=== PATIENT | female | born 1985 | race Caucasian/White ===

== ENCOUNTER 2018-02-09 08:41 | Outpatient (CLI) | payer OTHER ==
--- NOTE | 2018-02-09 13:48 | ULT ---
THYROID ULTRASOUND: Clinical history: Multinodular goiter. Comparison: None available. FINDINGS: There is generalized heterogeneity of the thyroid gland and there is thickening of the thyroid isthmu s measuring 4-5 mm in thickness. Numerous hypoechoic foci are interspersed throughout each thyroid lo be with a dominant mixed echogenicity solid appearing nodule seen within the mid region left thyroid lobe measuring up to approximately 1.5 cm, circumscribed in appearance. Left thyroid lobe length is d ocumented at 4.1 cm and right thyroid lobe length at 4.6 cm. IMPRESSION: Sonographic findings of multinodular goiter. Dominant nodule resides within the left thyroid lobe, mi d aspect, approximately 1.5 cm in diameter. Recommend follow up thyroid ultrasound in one year for do cumentation of stability. POS: SALMA
== END 2018-02-09 08:42 | disposition home or self-care (01) ==
LOC: ULT 08:41
PROVIDERS: ATTEND Family Medicine
DX: E04.2 Nontoxic multinodular goiter (principal); T78.1XXA Other adverse food reactions, not elsewhere classified, initial encounter
CPT/HCPCS: 36415; 76536

== ENCOUNTER 2018-10-25 05:28 | Emergency (ER) | payer OTHER ==
[2018-10-25] MEDS ORDERED: Ketorolac Tromethamine 60 MG/2 ML VIAL ONE (06:11)
--- NOTE | 2018-10-25 07:40 | RAD ---
CHEST 2 VIEWS: Date: 10/25/18 INDICATION: History of left-sided arm pain. COMPARISON: None. FINDINGS: Lungs are clear. Heart size normal. No acute osseous abnormality is evident. IMPRESSION: No acute cardiopulmonary abnormality. POS: BH
--- NOTE | 2018-10-25 07:44 | RAD ---
LEFT SHOULDER 3 VIEWS: Date: 10/25/18 INDICATION: Left shoulder pain. COMPARISON: None. FINDINGS: There are calcifications within the soft tissues adjacent to the posterior aspect of the left greater tuberosity suspicious for calcific tendinosis. There is a well circumscribed peripherally sclerotic lesion seen eccentrically within the proximal metadiaphyseal region of the left proximal humerus. Thi s lesion abuts the lateral cortex of the proximal left humerus without evidence of endosteal or perio steal reaction. Lesion contains some areas of lace-like and linear radiodensity. Visualized left lung is clear. AC joint is normal appearing. IMPRESSION: 1. Calcific densities overlying the soft tissues near the posterior aspect of the greater tuberosity suspicious for calcific tendinosis. 2. 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 This is a benign entity. There are no aggressive feat ures involving this lesion. This is a lesion of low biologic activity. 3. Glenohumeral and AC joint alignment is within normal limits. No acute fracture is demonstrated. POS:
== END 2018-10-25 06:51 | disposition home or self-care (01) ==
LOC: ERS 05:28
DX: M75.32 Calcific tendinitis of left shoulder (principal); F41.9 Anxiety disorder, unspecified; Z79.899 Other long term (current) drug therapy
CPT/HCPCS: 71046; 93005; 96372; J1885

== ENCOUNTER 2019-02-16 08:48 | Outpatient (CLI) | payer OTHER ==
--- NOTE | 2019-02-16 09:54 | ULT ---
THYROID ULTRASOUND: HISTORY: Multinodular goiter. COMPARISON: 02/09/2018 TECHNIQUE: Sagittal and transverse imaging of the thyroid gland is performed. FINDINGS: Diffuse heterogeneity throughout the thyroid gland. Thyroid isthmus is 0.8 cm. Right thyroid lobe m easures 2.5 x 5.5 x 2.2 cm. Left thyroid lobe measures 4.9 x 1.9 x 2.2 cm. There is a nodule in the lower pole of the left thyroid lobe, measuring 1.4 x 0.9 x 0.9 cm. This nodule has a TI-RADS lyubov culator score of TR4, moderately suspicious. Based on the size of the lesion, follow-up imaging in one year is recommended. IMPRESSION: 1. Solid nodule in the left thyroid lobe, lower pole, as described above. No appreciable change in size. 2. Diffuse heterogeneity throughout the thyroid gland, similar to the previous exam. Transcribed Date/Time: 02/16/2019 10:10 AM
== END 2019-02-16 08:49 | disposition home or self-care (01) ==
LOC: RAD 08:48
PROVIDERS: ATTEND Physician Assistant
DX: E04.2 Nontoxic multinodular goiter (principal)
CPT/HCPCS: 76536

== ENCOUNTER 2020-10-17 07:57 | Outpatient (CLI) | payer OTHER | END 2020-10-17 07:58 | disposition home or self-care (01) | LOC: BICMAMMO 07:57 | PROVIDERS: ATTEND Physician Assistant | DX: Z00.00 Encounter for general adult medical examination without abnormal findings (principal); Z80.3 Family history of malignant neoplasm of breast | CPT/HCPCS: 77063; 77067 ==

== ENCOUNTER 2020-12-26 10:10 | Outpatient (CLI) | payer OTHER | END 2020-12-26 10:11 | disposition home or self-care (01) | LOC: ULT 10:10 | PROVIDERS: ATTEND Internal Medicine Endocrinology, Diabetes & Metabolism | DX: E04.2 Nontoxic multinodular goiter (principal) | CPT/HCPCS: 76536 ==

== ENCOUNTER 2021-03-13 20:30 | Inpatient (IN) | payer OTHER ==
[2021-03-13] MEDS ORDERED: Propofol 1,000 MG/100 ML VIAL IV ONE (23:25)
[2021-03-13] MEDS ORDERED: Fentanyl CADD 100 ML ONE (23:58)
[2021-03-14] MEDS ORDERED: Ventilator Sedation Protocol 1 EACH FS ONE (00:26)
[2021-03-14] MEDS ORDERED: hydrALAZINE 20 MG/ML VIAL SLOW IVP PRN (00:27)
[2021-03-14] MEDS ORDERED: HumaLOG 300 UNITS/3 ML VIAL SC PRN (00:27)
[2021-03-14] MEDS ORDERED: VANCOMYCIN IVPB PRN (00:27)
[2021-03-14] MEDS ORDERED: Acetaminophen 325 MG TAB PO PRN (00:29)
[2021-03-14] MEDS ORDERED: Ondansetron PF 4 MG/2 ML Vial IVP PRN (00:29)
[2021-03-14] MEDS ORDERED: DISCONTINUE PREVIOUS NARCOTIC PAIN MEDICATIONS AND BENZODIAZEPINES FS SCH (01:00)
[2021-03-14] MEDS ORDERED: Propofol 1,000 MG/100 ML VIAL IV PRN (01:00)
[2021-03-14] MEDS ORDERED: Propofol BOLUS 1,000 MG/100 ML VIAL IV PRN (01:00)
[2021-03-14] MEDS ORDERED: Furosemide 100 MG/10 ML VIAL SLOW IVP SCH (01:00)
[2021-03-14] MEDS ORDERED: Fentanyl BOLUS 250 ML IVPB PRN (01:00)
[2021-03-14] MEDS: Cefepime 1 GM in Sodium Chloride 0.9% 100 ML IVPB SCH ×2 (01:09→13:50)
[2021-03-14] MEDS: Propofol 1,000 MG/100 ML VIAL IV PRN ×6 (02:25→22:46)
[2021-03-14 04:50] LABS: Band 18 % (5-11); Hemoglobin 9.7 g/dL (12.0-16.0); Hypochromia SLIGHT = 6-15 cells (100X) (0-5/hpf); MDiff Complete? YES; Mean Corpuscular Hemoglobin 30.3 pg (27.0-31.0); Mean Corpuscular Volume 94.7 fL (78.0-98.0); Mean Platelet Volume 9.8 fL (7.4-10.4); Monocytes 10 % (0-10); Neutrophil 72 % (42-75); Platelet Count 133 thou/uL (130-400); Platelet Morphology Comment Appears Adequate; RBC Distribution Width 11.5 % (11.5-14.5); White Blood Cell (WBC) Count 39.8 thou/uL (4.8-10.8)
[2021-03-14 05:07] LABS: ALT (SGPT) 37 U/L (8-55); AST (SGOT) 72 U/L (5-34); Albumin 2.5 g/dL (3.5-5.0); Alkaline Phosphatase 143 U/L (40-110); Anion Gap 18 mmol/L (10-20); BUN (Urea Nitrogen) 67 mg/dL (7.0-18.7); Calc. Creatinine Clearance 21 mL/min (70-130); Calcium 7.6 mg/dL (7.8-10.44); Carbon Dioxide 21 mmol/L (22-29); Chloride 105 mmol/L (98-107); Globulin 3.1 g/dL (2.4-3.5); Glucose 133 mg/dL (70-105); Potassium 4.9 mmol/L (3.5-5.1); Protein, Total 5.6 g/dL (6.0-8.3); Sodium 139 mmol/L (136-145)
[2021-03-14 05:10] LABS: Troponin I 0.167 ng/mL (< 0.028)
[2021-03-14] MEDS: Furosemide 100 MG/10 ML VIAL SLOW IVP SCH ×2 (06:42→15:12)
[2021-03-14] MEDS ORDERED: Heparin 10,000 UNITS/ 10 ML VIAL ONE (08:45)
[2021-03-14] MEDS ORDERED: Dexamethasone 10 MG in Sodium Chloride 0.9% 50 ML IVPB SCH (09:00)
[2021-03-14] MEDS ORDERED: Enoxaparin Sodium 40 MG/0.4 ML SYRINGE SC SCH (09:00)
[2021-03-14] MEDS: Famotidine/PF 20 mg/2ml Vial SLOW IVP SCH ×2 (09:07→19:41)
[2021-03-14 09:09] LABS: Base Excess (BEa) -7.7 mEq/L (-2.0 to +3.0); CO2 Tension 50.1 mmHg (35.0-45.0); Calcium, Ionized (arterial) 0.96 mmol/L (1.12-1.30); Carboxyhemoglobin (COHb) 0.3 gm% (0.0-3.0); Hemoglobin (Hb) 10.7 g/dL (12.0-16.0); O2 Tension (PaO2), arterial 88.1 mmHg (80.0-100.0); Potassium - ABG Lab 4.86 mmol/L (3.70-5.30)
[2021-03-14 09:11] LABS: pH, Arterial 7.22 (7.35-7.45)
[2021-03-14 09:12] LABS: ALV-art Gradient 490.975 mmHg (0-20); Puncture Site RRA
[2021-03-14] MEDS: Lorazepam 2 MG/ML VIAL SLOW IVP PRN ×2 (09:23→21:52)
[2021-03-14] MEDS ORDERED: Vecuronium 10 MG VIAL ONE ×2 (09:41→14:19)
[2021-03-14 11:17] LABS: HBSAg Index 0.24 S/CO (0-0.99); Hep B Surf Ag Non-Reactive S/CO (NonReactive)
[2021-03-14] MEDS ORDERED: Fentanyl CADD 100 ML ONE (12:02)
[2021-03-14] MEDS: Fentanyl CADD 100 ML IV SCH ×2 (12:05→13:00)
[2021-03-14 19:03] LABS: Creatinine, Urine 42.84 mg/dL (47-110)
[2021-03-14] MEDS: Morphine 2 MG/ML VIAL SLOW IVP PRN (21:28)
[2021-03-15] MEDS: Cefepime 1 GM in Sodium Chloride 0.9% 100 ML IVPB SCH ×2 (00:10→13:48)
[2021-03-15] MEDS ORDERED: Fentanyl CADD 100 ML ONE ×2 (00:28→14:30)
[2021-03-15] MEDS: Fentanyl CADD 100 ML IV SCH ×2 (00:47→14:35)
[2021-03-15 01:29] LABS: Vancomycin, Random 23.5 ug/mL (See Comment)
[2021-03-15] MEDS ORDERED: Vancomycin 1 GM in Premix Bag 1 BAG IVPB SCH (02:00)
[2021-03-15] MEDS: Propofol 1,000 MG/100 ML VIAL IV PRN ×4 (03:12→18:06)
[2021-03-15 07:14] LABS: Hemoglobin 10.6 g/dL (12.0-16.0); Mean Corpuscular HGB CONC 31.8 g/dL (32.0-36.0); Mean Corpuscular Hemoglobin 29.7 pg (27.0-31.0); Mean Corpuscular Volume 93.1 fL (78.0-98.0); Mean Platelet Volume 9.7 fL (7.4-10.4); Platelet Count 150 thou/uL (130-400); RBC Distribution Width 11.7 % (11.5-14.5); Red Blood Cell (RBC) Count 3.56 mill/uL (4.20-5.40); White Blood Cell (WBC) Count 40.9 thou/uL (4.8-10.8)
[2021-03-15] MEDS: Enoxaparin Sodium 30 MG/0.3 ML SYRINGE SC SCH (07:45)
[2021-03-15] MEDS: Dexamethasone 4 mg/ml Vial SLOW IVP SCH (07:45)
[2021-03-15] MEDS: Famotidine/PF 20 mg/2ml Vial SLOW IVP SCH (07:53)
[2021-03-15 08:06] LABS: Band 24 % (5-11); Lymphocytes 2 % (21-51); MDiff Complete? YES; Monocytes 3 % (0-10); Neutrophil 71 % (42-75); Platelet Morphology Comment Appears Adequate; Polychromasia SLIGHT = 2-3 cells (100X) (0-2/hpf)
[2021-03-15] MEDS ORDERED: Heparin 10,000 UNITS/ 10 ML VIAL ONE (09:54)
[2021-03-15] MEDS: Vecuronium 10 MG VIAL IV PRN ×2 (10:07→18:07)
[2021-03-15] MEDS: Propofol 500 MG/50 ML VIAL IV PRN (22:17)
[2021-03-16] MEDS: Propofol 500 MG/50 ML VIAL IV PRN ×5 (00:26→10:05)
[2021-03-16] MEDS: Cefepime 1 GM in Sodium Chloride 0.9% 100 ML IVPB SCH ×2 (00:26→12:34)
[2021-03-16 01:31] LABS: Vancomycin, Random 15.7 ug/mL (See Comment)
[2021-03-16] MEDS ORDERED: Vancomycin HCl 750 MG in Sodium Chloride 0.9% 250 ML 250 ML IVPB SCH (01:45)
[2021-03-16] MEDS ORDERED: Fentanyl CADD 100 ML ONE ×2 (02:56→16:14)
[2021-03-16] MEDS: Fentanyl CADD 100 ML IV SCH ×2 (03:02→16:21)
[2021-03-16 04:45] LABS: Anion Gap 21 mmol/L (10-20); BUN (Urea Nitrogen) 76 mg/dL (7.0-18.7); Calc. Creatinine Clearance 23 mL/min (70-130); Calcium 7.4 mg/dL (7.8-10.44); Carbon Dioxide 22 mmol/L (22-29); Chloride 100 mmol/L (98-107); Glucose 97 mg/dL (70-105); Sodium 138 mmol/L (136-145)
[2021-03-16 05:03] LABS: Hemoglobin 9.6 g/dL (12.0-16.0); Mean Corpuscular Hemoglobin 31.3 pg (27.0-31.0); Mean Corpuscular Volume 92.1 fL (78.0-98.0); Mean Platelet Volume 9.9 fL (7.4-10.4); Platelet Count 141 thou/uL (130-400); RBC Distribution Width 11.7 % (11.5-14.5); Red Blood Cell (RBC) Count 3.05 mill/uL (4.20-5.40); White Blood Cell (WBC) Count 38.3 thou/uL (4.8-10.8)
[2021-03-16 06:20] LABS: Band 4 % (5-11); Lymphocytes 8 % (21-51); MDiff Complete? YES; Metamyelocyte 2 % (0-0); Monocytes 11 % (0-10); Myelocyte 1 % (0-0); Neutrophil 74 % (42-75); Platelet Morphology Comment Appears Adequate; RBC Morphology Normal
[2021-03-16] MEDS: Famotidine/PF 20 mg/2ml Vial SLOW IVP SCH (08:58)
[2021-03-16] MEDS: Dexamethasone 4 mg/ml Vial SLOW IVP SCH ×2 (08:58→19:19)
[2021-03-16] MEDS: Enoxaparin Sodium 30 MG/0.3 ML SYRINGE SC SCH (08:58)
[2021-03-16] MEDS ORDERED: Vecuronium 10 MG VIAL ONE (09:29)
[2021-03-16] MEDS: Vecuronium 10 MG VIAL IV PRN ×3 (09:30→21:05)
[2021-03-16] MEDS ORDERED: Heparin 10,000 UNITS/ 10 ML VIAL ONE (09:56)
[2021-03-16] MEDS ORDERED: Propofol 1,000 MG/100 ML VIAL IV ONE ×2 (12:31→17:18)
[2021-03-16 13:23] LABS: Actual Bicarbonate (HCO3a) 25.8 mEq/L (22-28); Base Excess (BEa) 0.9 mEq/L (-2.0 to +3.0); CO2 Tension 42.2 mmHg (35.0-45.0); Calcium, Ionized (arterial) 1.06 mmol/L (1.12-1.30); Hemoglobin (Hb) 11.1 g/dL (12.0-16.0); O2 Tension (PaO2), arterial 82.5 mmHg (80.0-100.0); Potassium - ABG Lab 3.54 mmol/L (3.70-5.30)
[2021-03-16 13:33] LABS: Puncture Site LRA
[2021-03-16] MEDS ORDERED: Sterile Water 10 ML ONE (20:59)
[2021-03-16] MEDS: Morphine 2 MG/ML VIAL SLOW IVP PRN (21:00)
[2021-03-16] MEDS: Lorazepam 2 MG/ML VIAL SLOW IVP PRN (21:02)
[2021-03-16 21:34] LABS: Bilirubin Negative (Negative); Blood, Urine 3+ (Negative); Glucose, Urine (Dipstick) Normal (Negative); Ketone, Urine Negative (Negative); Leukocyte 500 Leu/uL (Negative); Nitrite Negative (Negative); Protein, Urine (Dipstick) 200 mg/dL (Neg-Trace); RBC/HPF Greater than 50 HPF (0-3); Urobilinogen Normal mg/dL (Less than 2); WBC/HPF Greater than 50 HPF (0-3); Yeast-Hyphae 2+ HPF (None Seen)
[2021-03-16 21:43] LABS: Clarity Turbid (Clear); Squamous Epithelial 0-3 HPF (0-3)
[2021-03-16 21:44] LABS: Bacteria/HPF 2+ HPF (None Seen); Yeast-Budding 2+ HPF (None Seen)
[2021-03-16] MEDS: Propofol 1,000 MG/100 ML VIAL IV PRN (22:30)
[2021-03-17] MEDS: Cefepime 1 GM in Sodium Chloride 0.9% 100 ML IVPB SCH ×2 (01:17→13:37)
[2021-03-17] MEDS ORDERED: Fentanyl CADD 0 ML ONE (01:31)
[2021-03-17 02:02] LABS: Vancomycin, Random 16.8 ug/mL (See Comment)
[2021-03-17] MEDS: Propofol 1,000 MG/100 ML VIAL IV PRN ×6 (02:46→20:36)
[2021-03-17] MEDS ORDERED: Fentanyl CADD 100 ML ONE ×2 (03:56→17:08)
[2021-03-17] MEDS: Fentanyl CADD 100 ML IV SCH ×2 (03:58→17:13)
[2021-03-17] MEDS ORDERED: Sterile Water 10 ML ONE ×2 (04:25→20:14)
[2021-03-17] MEDS: Vecuronium 10 MG VIAL IV PRN ×4 (04:26→20:16)
[2021-03-17] MEDS: Lorazepam 2 MG/ML VIAL SLOW IVP PRN ×3 (04:26→23:32)
[2021-03-17 04:32] LABS: Phosphorus 8.8 mg/dL (2.3-4.7)
[2021-03-17 04:43] LABS: AST (SGOT) 129 U/L (5-34); Calcium 7.2 mg/dL (7.8-10.44); Chloride 97 mmol/L (98-107); Potassium 4.9 mmol/L (3.5-5.1); Sodium 135 mmol/L (136-145)
[2021-03-17 04:47] LABS: Albumin 2.5 g/dL (3.5-5.0)
[2021-03-17 04:50] LABS: Globulin 3.1 g/dL (2.4-3.5); Glucose 99 mg/dL (70-105); Protein, Total 5.6 g/dL (6.0-8.3)
[2021-03-17 04:51] LABS: Carbon Dioxide 22 mmol/L (22-29)
[2021-03-17 04:53] LABS: Alkaline Phosphatase 198 U/L (40-110); Calc. Creatinine Clearance 30 mL/min (70-130)
[2021-03-17 04:54] LABS: BUN (Urea Nitrogen) 67 mg/dL (7.0-18.7)
[2021-03-17 04:55] LABS: Magnesium 2.5 mg/dL (1.6-2.6)
[2021-03-17 04:56] LABS: ALT (SGPT) 46 U/L (8-55)
[2021-03-17 05:14] LABS: Hemoglobin 10.1 g/dL (12.0-16.0); Mean Corpuscular HGB CONC 34.3 g/dL (32.0-36.0); Mean Corpuscular Hemoglobin 31.5 pg (27.0-31.0); Mean Corpuscular Volume 91.9 fL (78.0-98.0); Mean Platelet Volume 10.2 fL (7.4-10.4); Platelet Count 139 thou/uL (130-400)
[2021-03-17 05:35] LABS: Anion Gap 22 mmol/L (10-20)
[2021-03-17 05:59] LABS: Band 27 % (5-11); Lymphocytes 4 % (21-51); MDiff Complete? YES; Metamyelocyte 1 % (0-0); Monocytes 1 % (0-10); Neutrophil 67 % (42-75)
[2021-03-17] MEDS: Enoxaparin Sodium 30 MG/0.3 ML SYRINGE SC SCH (08:18)
[2021-03-17] MEDS: Dexamethasone 4 mg/ml Vial SLOW IVP SCH ×2 (08:18→20:16)
[2021-03-17] MEDS: Famotidine/PF 20 mg/2ml Vial SLOW IVP SCH (08:19)
[2021-03-17] MEDS ORDERED: Vancomycin HCl 750 MG in Sodium Chloride 0.9% 250 ML 250 ML IVPB SCH (09:00)
[2021-03-17 09:15] LABS: Actual Bicarbonate (HCO3a) 21.7 mEq/L (22-28); Base Excess (BEa) -3.6 mEq/L (-2.0 to +3.0); CO2 Tension 40.2 mmHg (35.0-45.0); Calcium, Ionized (arterial) 0.94 mmol/L (1.12-1.30); Carboxyhemoglobin (COHb) 0.2 gm% (0.0-3.0); Hemoglobin (Hb) 10.5 g/dL (12.0-16.0); O2 Tension (PaO2), arterial 71.5 mmHg (80.0-100.0); Potassium - ABG Lab 4.72 mmol/L (3.70-5.30); pH, Arterial 7.35 (7.35-7.45)
[2021-03-17 09:34] LABS: Puncture Site LRA
[2021-03-17] MEDS ORDERED: Heparin 10,000 UNITS/ 10 ML VIAL ONE (11:53)
[2021-03-18] MEDS: Cefepime 1 GM in Sodium Chloride 0.9% 100 ML IVPB SCH ×2 (00:19→12:33)
[2021-03-18] MEDS: Propofol 1,000 MG/100 ML VIAL IV PRN ×7 (00:19→22:03)
[2021-03-18] MEDS: Lorazepam 2 MG/ML VIAL SLOW IVP PRN (02:07)
[2021-03-18] MEDS: Vecuronium 10 MG VIAL IV PRN ×3 (02:07→16:00)
[2021-03-18] MEDS ORDERED: Fentanyl CADD 100 ML ONE ×2 (04:28→17:26)
[2021-03-18] MEDS: Fentanyl CADD 100 ML IV SCH ×2 (04:32→17:47)
[2021-03-18 04:34] LABS: Hemoglobin 10.2 g/dL (12.0-16.0); Mean Corpuscular HGB CONC 34.3 g/dL (32.0-36.0); Mean Corpuscular Hemoglobin 31.3 pg (27.0-31.0); Mean Corpuscular Volume 91.1 fL (78.0-98.0); Mean Platelet Volume 10.6 fL (7.4-10.4); Platelet Count 134 thou/uL (130-400); Red Blood Cell (RBC) Count 3.26 mill/uL (4.20-5.40); White Blood Cell (WBC) Count 48.8 thou/uL (4.8-10.8)
[2021-03-18 04:43] LABS: Phosphorus 7.3 mg/dL (2.3-4.7)
[2021-03-18 04:45] LABS: ALT (SGPT) 41 U/L (8-55); AST (SGOT) 118 U/L (5-34); Albumin 2.4 g/dL (3.5-5.0); Alkaline Phosphatase 183 U/L (40-110); Anion Gap 21 mmol/L (10-20); BUN (Urea Nitrogen) 59 mg/dL (7.0-18.7); Bilirubin, Total 0.9 mg/dL (0.2-1.2); Calc. Creatinine Clearance 35 mL/min (70-130); Calcium 7.4 mg/dL (7.8-10.44); Carbon Dioxide 24 mmol/L (22-29); Chloride 95 mmol/L (98-107); Globulin 3.4 g/dL (2.4-3.5); Glucose 99 mg/dL (70-105); Magnesium 2.3 mg/dL (1.6-2.6); Potassium 4.6 mmol/L (3.5-5.1); Protein, Total 5.8 g/dL (6.0-8.3); Sodium 135 mmol/L (136-145)
[2021-03-18 05:26] LABS: Band 19 % (5-11); Lymphocytes 3 % (21-51); MDiff Complete? YES; Monocytes 1 % (0-10); Myelocyte 2 % (0-0); Neutrophil 75 % (42-75); Nucleated RBC 1 % (0)
[2021-03-18 08:35] LABS: Actual Bicarbonate (HCO3a) 25.6 mEq/L (22-28); Base Excess (BEa) -0.3 mEq/L (-2.0 to +3.0); CO2 Tension 47.2 mmHg (35.0-45.0); Calcium, Ionized (arterial) 0.98 mmol/L (1.12-1.30); Carboxyhemoglobin (COHb) 0.3 gm% (0.0-3.0); Hemoglobin (Hb) 10.9 g/dL (12.0-16.0); O2 Tension (PaO2), arterial 77.6 mmHg (80.0-100.0); Potassium - ABG Lab 4.51 mmol/L (3.70-5.30); pH, Arterial 7.35 (7.35-7.45)
[2021-03-18 08:38] LABS: Puncture Site LRA
[2021-03-18] MEDS: Enoxaparin Sodium 30 MG/0.3 ML SYRINGE SC SCH (09:17)
[2021-03-18] MEDS: Dexamethasone 4 mg/ml Vial SLOW IVP SCH ×2 (09:17→21:26)
[2021-03-18] MEDS: Famotidine/PF 20 mg/2ml Vial SLOW IVP SCH (09:23)
[2021-03-18 09:38] LABS: Vancomycin, Random 22.8 ug/mL (See Comment)
[2021-03-18 16:13] LABS: Hemoglobin 10.3 g/dL (12.0-16.0); Mean Corpuscular HGB CONC 34.5 g/dL (32.0-36.0); Mean Corpuscular Hemoglobin 31.1 pg (27.0-31.0); Mean Corpuscular Volume 90.3 fL (78.0-98.0); Mean Platelet Volume 11.2 fL (7.4-10.4); Platelet Count 125 thou/uL (130-400); RBC Distribution Width 11.9 % (11.5-14.5); Red Blood Cell (RBC) Count 3.32 mill/uL (4.20-5.40); White Blood Cell (WBC) Count 51.5 thou/uL (4.8-10.8)
[2021-03-18 16:36] LABS: Band 23 % (5-11); Large Platelets SLIGHT; Lymphocytes 2 % (21-51); MDiff Complete? YES; Monocytes 3 % (0-10); Neutrophil 71 % (42-75); Platelet Morphology Comment Appears Decreased; Polychromasia MODERATE = 3-4 cells (100X) (0-2/hpf); Reactive Lymphocytes 1 % (0-10)
[2021-03-19] MEDS: Propofol 1,000 MG/100 ML VIAL IV PRN ×6 (00:58→21:54)
[2021-03-19] MEDS: Cefepime 1 GM in Sodium Chloride 0.9% 100 ML IVPB SCH (00:58)
[2021-03-19 04:25] LABS: Hemoglobin 9.9 g/dL (12.0-16.0); Mean Corpuscular HGB CONC 35.6 g/dL (32.0-36.0); Mean Corpuscular Volume 89.8 fL (78.0-98.0); Red Blood Cell (RBC) Count 3.11 mill/uL (4.20-5.40)
[2021-03-19 04:39] LABS: Anion Gap 26 mmol/L (10-20); BUN (Urea Nitrogen) 99 mg/dL (7.0-18.7); Calc. Creatinine Clearance 25 mL/min (70-130); Calcium 7.2 mg/dL (7.8-10.44); Carbon Dioxide 20 mmol/L (22-29); Chloride 92 mmol/L (98-107); Glucose 107 mg/dL (70-105); Potassium 5.5 mmol/L (3.5-5.1); Sodium 132 mmol/L (136-145)
[2021-03-19 05:02] LABS: Band 20 % (5-11); Lymphocytes 4 % (21-51); MDiff Complete? YES; Mean Platelet Volume 11.1 fL (7.4-10.4); Monocytes 3 % (0-10); Neutrophil 73 % (42-75); Platelet Count 111 thou/uL (130-400); Platelet Morphology Comment Appears Decreased; RBC Morphology Normal
[2021-03-19] MEDS: Lorazepam 2 MG/ML VIAL SLOW IVP PRN ×2 (05:47→21:54)
[2021-03-19] MEDS ORDERED: Fentanyl CADD 100 ML ONE ×2 (07:08→20:44)
[2021-03-19] MEDS: Fentanyl CADD 100 ML IV SCH ×2 (07:10→20:48)
[2021-03-19] MEDS: Vecuronium 10 MG VIAL IV PRN (07:18)
[2021-03-19] MEDS: Enoxaparin Sodium 30 MG/0.3 ML SYRINGE SC SCH (09:09)
[2021-03-19] MEDS: Dexamethasone 4 mg/ml Vial SLOW IVP SCH ×2 (09:10→20:50)
[2021-03-19 10:25] LABS: Vancomycin, Random 18.5 ug/mL (See Comment)
[2021-03-19] MEDS: Famotidine/PF 20 mg/2ml Vial SLOW IVP SCH (11:22)
[2021-03-19] MEDS ORDERED: Heparin 10,000 UNITS/ 10 ML VIAL ONE (11:51)
[2021-03-19] MEDS ORDERED: Vancomycin HCl 1.5 GM in Sodium Chloride 0.9% 250 ML 300 ML IVPB SCH (12:30)
[2021-03-19] MEDS ORDERED: HOLD VANCOMYCIN FOR LEVEL >20 FS SCH (12:30)
[2021-03-19] MEDS ORDERED: Vancomycin HCl 1.25 GM in Sodium Chloride 0.9% 250 ML 250 ML IVPB SCH (12:30)
[2021-03-19] MEDS ORDERED: Vancomycin 1 GM in Premix Bag 1 BAG IVPB SCH (12:30)
[2021-03-19] MEDS ORDERED: Vancomycin HCl 750 MG in Sodium Chloride 0.9% 250 ML 250 ML IVPB SCH (12:30)
[2021-03-19] MEDS ORDERED: Sodium Chloride 0.9% (PF) 10 ML VIAL FS PRN (14:00)
[2021-03-19] MEDS: Pantoprazole 40 MG VIAL IVP SCH (15:40)
[2021-03-19] MEDS: Micafungin 100 MG in Sodium Chloride 0.9% 100 ML IVPB SCH (20:47)
[2021-03-19] MEDS: Morphine 2 MG/ML VIAL SLOW IVP PRN (23:39)
[2021-03-20] MEDS: Propofol 1,000 MG/100 ML VIAL IV PRN ×9 (00:55→23:46)
[2021-03-20] MEDS ORDERED: Cefepime 0.5 GM, Admixture Fee 1 EACH in Sodium Chloride 0.9% 100 ML IVPB SCH (01:00)
[2021-03-20] MEDS: Morphine 2 MG/ML VIAL SLOW IVP PRN (02:06)
[2021-03-20] MEDS: Pantoprazole 40 MG VIAL IVP SCH ×2 (02:06→14:58)
[2021-03-20 04:29] LABS: Hemoglobin 9.1 g/dL (12.0-16.0); Mean Corpuscular HGB CONC 34.8 g/dL (32.0-36.0); Mean Corpuscular Hemoglobin 31.1 pg (27.0-31.0); Mean Corpuscular Volume 89.3 fL (78.0-98.0); Mean Platelet Volume 11.2 fL (7.4-10.4); Platelet Count 108 thou/uL (130-400); RBC Distribution Width 12.2 % (11.5-14.5); Red Blood Cell (RBC) Count 2.94 mill/uL (4.20-5.40); White Blood Cell (WBC) Count 61.5 thou/uL (4.8-10.8)
[2021-03-20 04:40] LABS: Anion Gap 20 mmol/L (10-20); BUN (Urea Nitrogen) 63 mg/dL (7.0-18.7); Calc. Creatinine Clearance 36 mL/min (70-130); Calcium 7.3 mg/dL (7.8-10.44); Carbon Dioxide 23 mmol/L (22-29); Chloride 95 mmol/L (98-107); Glucose 106 mg/dL (70-105); Potassium 4.6 mmol/L (3.5-5.1); Sodium 133 mmol/L (136-145)
[2021-03-20 05:51] LABS: Band 15 % (5-11); Lymphocytes 4 % (21-51); MDiff Complete? YES; Monocytes 2 % (0-10); Myelocyte 1 % (0-0); Neutrophil 78 % (42-75); Platelet Morphology Comment Appears Decreased; Polychromasia SLIGHT = 2-3 cells (100X) (0-2/hpf)
[2021-03-20] MEDS ORDERED: Fentanyl CADD 100 ML ONE ×2 (09:17→19:44)
[2021-03-20] MEDS: Enoxaparin Sodium 30 MG/0.3 ML SYRINGE SC SCH (09:33)
[2021-03-20] MEDS: Dexamethasone 4 mg/ml Vial SLOW IVP SCH ×2 (09:34→19:50)
[2021-03-20] MEDS: Lorazepam 2 MG/ML VIAL SLOW IVP PRN ×3 (09:35→14:59)
[2021-03-20] MEDS ORDERED: Heparin 10,000 UNITS/ 10 ML VIAL ONE (10:34)
[2021-03-20 11:05] LABS: Vancomycin, Random 13.6 ug/mL (See Comment)
[2021-03-20 11:27] LABS: Troponin I 0.104 ng/mL (< 0.028)
[2021-03-20] MEDS: Micafungin 100 MG in Sodium Chloride 0.9% 100 ML IVPB SCH (14:59)
[2021-03-20] MEDS: Meropenem 500 MG in Sodium Chloride 0.9% 100 ML IVPB SCH (16:53)
[2021-03-20 17:25] VITALS: BMI 36.5
[2021-03-20] MEDS: Fentanyl CADD 100 ML IV SCH (19:54)
[2021-03-21] MEDS: Pantoprazole 40 MG VIAL IVP SCH ×2 (02:55→15:00)
[2021-03-21] MEDS: Propofol 1,000 MG/100 ML VIAL IV PRN ×7 (02:57→22:20)
[2021-03-21 03:55] LABS: Band 29 % (5-11); Hemoglobin 8.8 g/dL (12.0-16.0); Lymphocytes 3 % (21-51); MDiff Complete? YES; Mean Corpuscular HGB CONC 33.9 g/dL (32.0-36.0); Mean Corpuscular Hemoglobin 30.9 pg (27.0-31.0); Mean Corpuscular Volume 91.1 fL (78.0-98.0); Mean Platelet Volume 11.2 fL (7.4-10.4); Monocytes 8 % (0-10); Neutrophil 60 % (42-75); Platelet Count 97 thou/uL (130-400); Platelet Morphology Comment Appears Decreased; RBC Distribution Width 12.9 % (11.5-14.5); RBC Morphology Normal; Red Blood Cell (RBC) Count 2.85 mill/uL (4.20-5.40); White Blood Cell (WBC) Count 61.6 thou/uL (4.8-10.8)
[2021-03-21 04:01] LABS: Anion Gap 27 mmol/L (10-20); BUN (Urea Nitrogen) 95 mg/dL (7.0-18.7); Calc. Creatinine Clearance 26 mL/min (70-130); Calcium 7.1 mg/dL (7.8-10.44); Carbon Dioxide 18 mmol/L (22-29); Chloride 92 mmol/L (98-107); Glucose 110 mg/dL (70-105); Sodium 131 mmol/L (136-145)
[2021-03-21] MEDS ORDERED: Fentanyl CADD 100 ML ONE (05:59)
[2021-03-21] MEDS: Fentanyl CADD 100 ML IV SCH ×2 (06:02→16:11)
[2021-03-21] MEDS ORDERED: Dextrose 50% Abboject 50 ML SYRINGE SLOW IVP SCH (07:00)
[2021-03-21] MEDS ORDERED: Insulin Regular 300 UNITS/3 ML VIAL IVP SCH (07:00)
[2021-03-21] MEDS: Enoxaparin Sodium 30 MG/0.3 ML SYRINGE SC SCH (08:35)
[2021-03-21] MEDS: Dexamethasone 4 mg/ml Vial SLOW IVP SCH ×2 (08:36→21:15)
[2021-03-21] MEDS ORDERED: Heparin 10,000 UNITS/ 10 ML VIAL ONE (10:31)
[2021-03-21] MEDS: Micafungin 100 MG in Sodium Chloride 0.9% 100 ML IVPB SCH (16:00)
[2021-03-21] MEDS: Meropenem 500 MG in Sodium Chloride 0.9% 100 ML IVPB SCH (16:43)
[2021-03-21 18:45] LABS: Bacteria/HPF 4+ HPF (None Seen); Bilirubin Negative (Negative); Blood, Urine 3+ (Negative); Clarity Extra Turbid (Clear); Glucose, Urine (Dipstick) Normal (Negative); Ketone, Urine Negative (Negative); Leukocyte 500 Leu/uL (Negative); Nitrite Negative (Negative); Protein, Urine (Dipstick) 300 mg/dL (Neg-Trace); RBC/HPF Greater than 50 HPF (0-3); Specific Gravity, Urine 1.021 (1.002-1.036); Squamous Epithelial None Seen HPF (0-3); Urobilinogen Normal mg/dL (Less than 2); WBC/HPF Greater than 50 HPF (0-3); Yeast-Budding 2+ HPF (None Seen); Yeast-Hyphae Rare HPF (None Seen); pH, Urine 6.5 (5.0-9.0)
[2021-03-21 18:48] LABS: Urine Culture Reflex Yes Yes
[2021-03-21 19:12] LABS: CMV DNA-PCR Test Negative (Negative)
[2021-03-22] MEDS: Pantoprazole 40 MG VIAL IVP SCH (01:14)
[2021-03-22] MEDS ORDERED: Fentanyl CADD 100 ML ONE ×2 (02:01→21:00)
[2021-03-22] MEDS: Fentanyl CADD 100 ML IV SCH ×2 (02:06→21:30)
[2021-03-22 04:17] LABS: Hemoglobin 8.2 g/dL (12.0-16.0); Mean Corpuscular HGB CONC 34.2 g/dL (32.0-36.0); Mean Corpuscular Hemoglobin 31.4 pg (27.0-31.0); Mean Corpuscular Volume 91.8 fL (78.0-98.0); Mean Platelet Volume 11.1 fL (7.4-10.4); Platelet Count 98 thou/uL (130-400); RBC Distribution Width 13.8 % (11.5-14.5); Red Blood Cell (RBC) Count 2.61 mill/uL (4.20-5.40); White Blood Cell (WBC) Count 50.3 thou/uL (4.8-10.8)
[2021-03-22 04:24] LABS: Phosphorus 8.1 mg/dL (2.3-4.7)
[2021-03-22 04:26] LABS: ALT (SGPT) 46 U/L (8-55); AST (SGOT) 112 U/L (5-34); Albumin 2.5 g/dL (3.5-5.0); Alkaline Phosphatase 161 U/L (40-110); Anion Gap 21 mmol/L (10-20); BUN (Urea Nitrogen) 68 mg/dL (7.0-18.7); Bilirubin, Total 0.7 mg/dL (0.2-1.2); Calc. Creatinine Clearance 34 mL/min (70-130); Calcium 7.1 mg/dL (7.8-10.44); Carbon Dioxide 21 mmol/L (22-29); Chloride 92 mmol/L (98-107); Globulin 3.3 g/dL (2.4-3.5); Glucose 117 mg/dL (70-105); Magnesium 2.2 mg/dL (1.6-2.6); Potassium 5.3 mmol/L (3.5-5.1); Protein, Total 5.8 g/dL (6.0-8.3); Sodium 129 mmol/L (136-145)
[2021-03-22 05:49] LABS: Band 23 % (5-11); Lymphocytes 7 % (21-51); MDiff Complete? YES; Metamyelocyte 3 % (0-0); Monocytes 3 % (0-10); Myelocyte 5 % (0-0); Neutrophil 59 % (42-75); Nucleated RBC 2 % (0); Platelet Morphology Comment Appears Decreased; Polychromasia SLIGHT = 2-3 cells (100X) (0-2/hpf)
[2021-03-22] MEDS: Propofol 1,000 MG/100 ML VIAL IV PRN ×4 (06:45→23:34)
[2021-03-22] MEDS: Dexamethasone 4 mg/ml Vial SLOW IVP SCH ×2 (08:55→21:30)
[2021-03-22] MEDS: Enoxaparin Sodium 30 MG/0.3 ML SYRINGE SC SCH (08:56)
[2021-03-22 08:59] LABS: Actual Bicarbonate (HCO3a) 20.1 mEq/L (22-28); CO2 Tension 42.4 mmHg (35.0-45.0); Calcium, Ionized (arterial) 0.93 mmol/L (1.12-1.30); Carboxyhemoglobin (COHb) 0.8 gm% (0.0-3.0); O2 Tension (PaO2), arterial 74.1 mmHg (80.0-100.0); Potassium - ABG Lab 5.15 mmol/L (3.70-5.30); pH, Arterial 7.29 (7.35-7.45)
[2021-03-22 09:05] LABS: Puncture Site RRA
[2021-03-22 11:28] VITALS: BP 193/109
[2021-03-22] MEDS ORDERED: Propofol 1,000 MG/100 ML VIAL IV ONE (12:03)
[2021-03-22] MEDS ORDERED: Lidocaine 1% w/Epinephrine 1:100K 20 ML VIAL ONE (12:21)
[2021-03-22] MEDS: Lorazepam 2 MG/ML VIAL SLOW IVP PRN (23:34)
[2021-03-22] MEDS ORDERED: Vecuronium 10 MG VIAL ONE (23:38)
[2021-03-23] MEDS ORDERED: Sterile Water 10 ML ONE (00:42)
[2021-03-23] MEDS ORDERED: Vecuronium 10 MG VIAL ONE (00:42)
[2021-03-23] MEDS ORDERED: Midazolam HCl 2 mg/2 ml Vial ONE (00:45)
[2021-03-23 05:42] VITALS: TEMP 101
[2021-03-23] MEDS ORDERED: Midazolam HCl 2 mg/2 ml Vial IVP PRN (07:11)
== END 2021-03-23 01:21 | disposition expired | DRG 207 ==
LOC: CCU 23:18
PROVIDERS: ADMIT Internal Medicine; ATTEND Internal Medicine Geriatric Medicine
PROC: 5A1955Z Respiratory Ventilation, Greater than 96 Consecutive Hours (ICD-10-PCS; 2021-03-13)
PROC: 8E0ZXY6 Isolation (ICD-10-PCS; 2021-03-13)
PROC: 0BH18EZ Insertion of Endotracheal Airway into Trachea, Via Natural or Artificial Opening Endoscopic (ICD-10-PCS; 2021-03-13)
PROC: 06HY33Z Insertion of Infusion Device into Lower Vein, Percutaneous Approach (ICD-10-PCS; principal; 2021-03-14)
PROC: 5A1D70Z Performance of Urinary Filtration, Intermittent, Less than 6 Hours Per Day (ICD-10-PCS; 2021-03-16)
PROC: 0W9B30Z Drainage of Left Pleural Cavity with Drainage Device, Percutaneous Approach (ICD-10-PCS; 2021-03-22)
DX: U07.1 COVID-19 (principal); J12.82 Pneumonia due to coronavirus disease 2019; J80 Acute respiratory distress syndrome; N17.0 Acute kidney failure with tubular necrosis; J93.9 Pneumothorax, unspecified; E03.9 Hypothyroidism, unspecified; D64.9 Anemia, unspecified; E87.5 Hyperkalemia; J98.2 Interstitial emphysema; E28.2 Polycystic ovarian syndrome; F41.9 Anxiety disorder, unspecified; E88.09 Other disorders of plasma-protein metabolism, not elsewhere classified; E66.9 Obesity, unspecified; Z68.36 Body mass index [BMI] 36.0-36.9, adult
CPT/HCPCS: 36415; 36416; 36600; 71045; 80048; 80053; 80202; 81001; 82570; 82728; 82805; 83735; 83880; 84100; 84145; 84300; 84443; 84484; 85007; 85027; 86140; 87040; 87070; 87077; 87086; 87186; 87205; 87340; 87449; 87497; 90935; 94002; 94003; C9113; G0257; J0692; J1100; J1642; J1644; J1650; J1940; J2060; J2185; J2248; J2270; J2704; J3010; J3370; J3490; J7030; J7050; M0249; Q0249; S0028